=== PATIENT | female | born 1975 | race Caucasian/White ===

== ENCOUNTER 2017-09-24 07:32 | Emergency (ER) | payer BC ==
[2017-10-29] MEDS ORDERED: DILAUDID2 MG PO (15:13)
[2017-10-29] MEDS ORDERED: OMEPRAZOLE40 MG PO (15:13)
[2017-10-29] MEDS ORDERED: NEURONTIN 300300 MG PO (15:13)
[2017-10-29] MEDS ORDERED: PROPRANOLOL HCL80 MG PO (15:13)
[2017-10-29] MEDS ORDERED: CYMBALTA60 MG PO (15:13)
[2017-10-29] MEDS ORDERED: MAXALT5 MG PO (15:14)
[2017-10-29] MEDS ORDERED: KLONOPIN0.5 MG PO (15:14)
[2017-10-29] MEDS ORDERED: TRAZODONE HCL50 MG PO (15:14)
[2017-10-29] MEDS ORDERED: GLUCOPHAGE1000 MG PO (15:15)
[2017-10-30 10:02] VITALS: BMI 37.4
== END 2017-09-24 08:32 | disposition home or self-care (01) ==
LOC: D.ER 07:32
DX: S50.12XA Contusion of left forearm, initial encounter (principal); W22.8XXA Striking against or struck by other objects, initial encounter; Y93.89 Activity, other specified; Y92.89 Other specified places as the place of occurrence of the external cause; F17.200 Nicotine dependence, unspecified, uncomplicated

== ENCOUNTER 2017-10-30 09:20 | Day surgery (SDC) | payer OTHER ==
[~2017-10-30] VITALS: Ht 175.3 cm; Wt 115.0 kg
[~2017-10-30 09:20] MED LIST: CYMBALTA60 MG PO; DILAUDID2 MG PO; GLUCOPHAGE1000 MG PO; KLONOPIN0.5 MG PO; MAXALT5 MG PO; NEURONTIN 300300 MG PO; OMEPRAZOLE40 MG PO; PROPRANOLOL HCL80 MG PO; TRAZODONE HCL50 MG PO
[2017-10-30 10:02] VITALS: BP 137/81; Ht 175.3 cm; Wt 115.0 kg
[2017-10-30 10:11] LABS: HEMATOCRIT 43.4 % (36.0-48.0); HEMOGLOBIN 15.6 g/dL (12-16); MCH 33.2 pg (26.0-34.0); MCHC 35.9 g/dL (31.0-37.0); MCV 92.3 fL (80.0-100.0); MEAN PLATELET VOLUME 9.9 fL (7.4-10.4); RBC 4.7 10x6/uL (4.00-5.40); WBC 10.4 10x3/uL (4.8-10.8)
[2017-10-30] MEDS ORDERED: NUCYNTA75 MG PO (11:26)
[2017-10-30] MEDS ORDERED: DURICEF500 MG PO (11:26)
--- NOTE | 2017-10-30 14:18 | NUR ---
1300 IV DC WITH CATHER TIP INTACT
--- NOTE | 2017-10-30 15:41 | OP ---
PATIENT NAME: DANA ROSS MEDICAL RECORD: [id number] :73 LOCATION:[facility] ADMISSION DATE: SURGEON: ALEXY BAKER DO DATE OF OPERATION: 10/30/2017 PROCEDURE PERFORMED: Left de Quervain release. PREOPERATIVE DIAGNOSIS: Left de Quervain's tenosynovitis or radial styloid tenosynovitis. POSTOPERATIVE DIAGNOSIS: Left de Quervain's tenosynovitis or radial styloid tenosynovitis. INDICATIONS: Ms. Ross is a 42-year-old female who sustained some trauma to her left wrist couple months ago at work. She hit her left wrist on a cabinet and she has had pain ever since and she even had numbness in her radial sensory nerve distribution into her hand. This went on for some time. She came to see me in the office. We tried splinting her and injecting the de Quervain's tenosynovitis. She even got an MRI, which showed inflammation in the first dorsal compartment of the wrist. After we tried the injection, it did not help. She said she wanted it fixed as she was not getting relief from conservative management. I informed her that the numbness of the radial sensory branch may not come back due to the fact of the trauma to that site, but we could release her first dorsal compartment extensor compartment. She consented to this procedure in the office verbally and that was put on the schedule. DESCRIPTION OF PROCEDURE: Ms. Ross was taken to the operative suite, laid in supine position, given a gram of Ancef preoperatively. The left arm was prepped and draped in sterile fashion. Tourniquet was placed above the elbow. After this was done, timeout was performed. Everyone was agreement to the correct side, site, and patient. A tourniquet was then used on the left upper extremity to exsanguinate the left upper extremity and tourniquet was inflated. The tourniquet was up for approximately 11 minutes during the procedure. There were no complications. Blood loss was minimal. Once the tourniquet was inflated, an incision was made over the radial styloid on the dorsal side of it. Careful dissection was made down with scissors and then Ragnell down to the extensor tendon sheath in the first dorsal compartment. There was quite a bit of hematoma in the soft tissue from the trauma that had occurred and this may be the reason, the radial sensory branch had been irritated due to that trauma. Once the sheath was encountered, it was seen to be quite thickened. In fact, even fluid was coming out of the tendon sheath itself. The sheath was then divided off the dorsal side of the sheath and then the compartment was opened up. There was no excess fluid found in the EPB or the APL for it to be released. Both tendons were freed up both proximally and distally, any synovitis was taken out at that time. Once this was done, tourniquet was let down at 11 minutes and injection of 0.5% Marcaine without epinephrine were injected approximately 10 mL in the surrounding area. The skin was then closed with 3 inverted interrupted sutures of 5-0 Monocryl and then Steri-Strips were placed over the wound. After this was done, Adaptic, 4 x 4's, and Kerlix were placed on the wrist to cover the wound and Coban was lightly wrapped around that. The patient was awakened and taken to recovery in stable condition. TRANSINT:[id number] Voice Confirmation ID: [id number] DOCUMENT ID: [id number] OPERATIVE REPORT [id number] DANA ROSS MICHAEL D, DO at 1541 CC: [id number] DICTATION DATE: 10/30/17 1132 LEGAL SERVICE SPECIALIST: 10/30/17 1159 [facility] 10/30/17 [facility] [address] [place] [address]
== END 2017-10-30 13:30 | disposition home or self-care (01) ==
LOC: D.OPS 09:20
PROVIDERS: Anesthesiology
DX: M65.4 Radial styloid tenosynovitis [de Quervain] (principal); W22.03XA Walked into furniture, initial encounter; Z01.812 Encounter for preprocedural laboratory examination

== ENCOUNTER 2018-02-11 06:12 | Emergency (ER) | payer BC ==
[2017-10-30 10:02] VITALS: BMI 37.4
[~2018-02-11 06:12] MED LIST changes: +DURICEF500 MG PO; +NUCYNTA75 MG PO
[2018-02-11 06:49] LABS: BASOPHILS 0 % (0-2); EOSINOPHILS 1.5 % (0-7); HEMATOCRIT 44.2 % (36.0-48.0); HEMOGLOBIN 15.6 g/dL (12-16); IMMATURE GRANULOCYTES 0.4 % (0-5); LYMPHOCYTES 28.3 % (15-50); MCH 33.6 pg (26.0-34.0); MCHC 35.3 g/dL (31.0-37.0); MCV 95.3 fL (80.0-100.0); MEAN PLATELET VOLUME 10.2 fL (7.4-10.4); MONOCYTES 7.7 % (2-11); NEUTROPHILS 62.1 % (40-80); PLATELET COUNT 132 10x3/uL (130-400); RBC 4.64 10x6/uL (4.00-5.40); RDW 13.5 % (11.5-14.5); WBC 4.7 10x3/uL (4.8-10.8)
[2018-02-11 07:15] LABS: ALBUMIN 3.7 g/dL (3.4-5.0); ALKALINE PHOSPHATASE 106 U/L (46-116); ALT (SGPT) 33 U/L (10-68); BILIRUBIN - TOTAL 0.76 mg/dL (0.2-1.3); CALC OSMOLALITY 270 mosm/kg (275-300); CALCIUM 9.1 mg/dL (8.5-10.1); CARBON DIOXIDE 24.5 mmol/L (21.0-32.0); CHLORIDE - SERUM 97 mmol/L (98-107); CREATININE - SERUM 0.7 mg/dL (0.6-1.3); GLUCOSE 183 mg/dL (74-106); POTASSIUM - SERUM 3.8 mmol/L (3.5-5.1); PROTEIN - SERUM 7.7 g/dL (6.4-8.2); SODIUM 133 mmol/L (136-145); UREA NITROGEN 12 mg/dL (7-18); eGFR NON AFRICAN AMERICAN > 90 mL/min (90-120)
[2018-02-11 07:25] LABS: CHOL - HDL RATIO 8.7 ratio (2.3-4.1); CHOLESTEROL, TOTAL 261 mg/dL (0-200); CKMB 0.3 U/L (0.0-3.6); CREATINE KINASE 41 UL (21-215); HDL CHOLESTEROL 30 mg/dL (32-96)
[2018-02-11 07:26] LABS: TRIGLYCERIDE 660 mg/dL (30-200); TROPONIN-I < 0.017 ng/mL (0.000-0.060)
[2018-02-11 07:45] LABS: APTT 24.4 SECONDS (22.8-39.4); INR 0.9 (0.85-1.17); PROTIME 11.8 SECONDS (11.6-15.0)
[2018-02-11 07:46] LABS: D-DIMER-QUANTITATIVE 0.59 ug/mLFEU (0.20-0.54)
[2018-02-11 08:01] LABS: MAGNESIUM - SERUM 1.9 mg/dL (1.8-2.4); THYROID STIMULATING HORMONE 2.26 uIU/mL (0.36-3.74)
== END 2018-02-11 11:49 | disposition home or self-care (01) ==
LOC: D.ER 06:12
PROVIDERS: Emergency Medicine; Family Medicine
DX: R07.9 Chest pain, unspecified (principal); J40 Bronchitis, not specified as acute or chronic; E11.9 Type 2 diabetes mellitus without complications; F17.200 Nicotine dependence, unspecified, uncomplicated

== ENCOUNTER 2018-03-23 06:39 | Day surgery (SDC) | payer BC ==
[~2018-03-23] VITALS: Ht 175.3 cm; Wt 122.7 kg
--- NOTE | ~2018-03-23 | OP ---
PATIENT NAME: DANA SHAW MEDICAL RECORD: [id number] :73 LOCATION:[facility] ADMISSION DATE: SURGEON: EULA MEDINA MD DATE OF OPERATION: 03/24/2018 PREOPERATIVE DIAGNOSES: Biliary dyskinesia, also hepatomegaly. POSTOPERATIVE DIAGNOSES: Biliary dyskinesia, also hepatomegaly with lower abdominal adhesions between the umbilicus and the bladder, and adhesions to the gallbladder. PROCEDURES: 1. Laparoscopic cholecystectomy. 2. Intraoperative cholangiography without immediate surgeon interpretation. 3. A 14-gauge core needle liver biopsies. SURGEON: Eula Medina MD BAG SHAKER: None. BLOOD LOSS: 50 cc. ANESTHESIA: General. DRAINS: Times 1 (10-Indonesian closed suction drainage system). Indication for the liver biopsy was hepatomegaly. The patient has marked hepatomegaly. The risks, possible complications, alternatives to procedure were explained to the patient. She elects to proceed. OPERATIVE COURSE: The patient was conveyed to the operating room electively on 03/24/2018. General anesthesia was induced by the anesthesia staff. The abdomen was sterilely prepped and draped. A small skin jaiden was accomplished in the left upper quadrant. A Veress needle was inserted through the skin jaiden into the peritoneal cavity. CO2 insufflation was begun. Once a sufficient pneumoperitoneum had been achieved, a 5-mm trocar was inserted through an incision in the right upper quadrant. Under direct internal vision utilizing television camera, a 12-mm trocar was inserted, cephalad to the umbilicus. A 5-mm trocar was inserted through an incision in the epigastrium. Another 5 mm trocar was inserted through an incision far laterally in the right upper quadrant. During insertion of the Veress needle and all trocars, there appeared to have been no injury to the bowels, any intraperitoneal or retroperitoneal structures. Under laparoscopic guidance, I percutaneously accessed the right upper quadrant utilizing a 14-gauge core needle liver biopsy device. Cores were obtained over the convexity the liver. The biopsy sites were made hemostatic with electrocautery. I then advanced a cholangiogram trocar. I punctured the fundus of the gallbladder. I aspirated bile. I then injected dye. Under real time fluoroscopy, static fluoroscopic images were obtained. These were cholangiographic images which are sent to the radiologist for interpretation. I OPERATIVE REPORT [id number] DANA SHAW then aspirated bile and removed the cholangiogram trocar. I then grasped the gallbladder and retracted it cephalad. Adhesions were taken down bluntly. Blunt dissection was begun on the triangle of Calot. One cystic artery and one cystic duct were identified. These were clipped multiply and divided between clips. The gallbladder was then excised from its bed in the liver. It was placed within a bag retrieval device and was withdrawn through the supraumbilical incision. The 12-mm trocar was replaced and the abdomen reinsufflated. I irrigated and aspirated the right upper quadrant. Tomasa and Nu-Knit were added to the gallbladder fossa for additional hemostasis. A 10-Indonesian drain was then advanced through the lateral most trocar site. It was sutured to the skin with a 2-0 silk. The 12-mm trocar was removed. The fascia at the 12 mm trocar site was closed with a single 0 Vicryl suture utilizing the Karel-Hieu suture closure device. All the trocars were removed and the abdomen desufflated. The skin incisions were closed with interrupted intracuticular 3-0 Vicryl. Benzoin and Steri-Strips were applied. The patient was then extubated and conveyed to post-anesthesia care unit where she was in stable condition. TRANSINT:[id number] Voice Confirmation ID: [id number] DOCUMENT ID: [id number] EULA MEDINA MD at 1157 CC: SAVAGE ULLOA MD and ELIJAH BRICE MD [id number] DICTATION DATE: 03/24/181914 URANIUM PROCESSING SUPERVISOR: 03/24/182006 [facility] 03/25/18 [facility] [address] [place] [address]
--- NOTE | ~2018-03-23 | HP ---
PATIENT: DANA SHAW MEDICAL RECORD: [id number] ACCOUNT: [id number] LOCATION:[facility] : 73 ADMISSION DATE: 03/23/18 HISTORY AND PHYSICAL EXAMINATION CHIEF COMPLAINT: Pain. HISTORY OF PRESENT ILLNESS: The patient has been having right upper quadrant pain, which radiates around to the right back and to the right scapula. It started yesterday. It was intermittent pain yesterday, now is continuous. She does have a Nicholas sign. No peritonitis to percussion. The pain is worse today, it is 8/10. She has had 10 mg of morphine in the Emergency Room and her pain is still unbearable. The patient has had nausea and vomiting. She has had abdominal bloating, also diarrhea. Food brought on this attack. She has never had a gallbladder attack in the past. I have personally reviewed her CT images. I have personally reviewed the CT report. I personally discussed this patient with Dr. Elijah Robertson. Palpation aggravates. Nothing alleviates. REVIEW OF SYSTEMS: Negative for night sweats or weight loss. Negative for anorexia. Negative for hemoptysis. Positive for fever. No black or tarry stools. Review of systems is negative other than as is described above. PAST MEDICAL AND SURGICAL HISTORY: Chest pain, anxiety, bronchitis, contusion to the left forearm, diabetes mellitus. ALLERGIES: PERCOCET, PENICILLIN, AND VICODIN. PHYSICAL EXAMINATION: GENERAL: She does appear acutely ill. Does not appear chronically ill. VITAL SIGNS: Reviewed. The entire physical examination was performed in the presence of a female nurse. EARS: External ears appear normal. EYES: Extraocular movements are intact. NECK: Trachea is midline. CHEST: No intercostal retractions. PULMONARY: Nonlabored, no stridor. ABDOMEN: As described above. EXTREMITIES: No peripheral cyanosis. INTEGUMENT: No rash. No ulcerations. She does have a abhinav face. PSYCHIATRIC: Normal affect. NEUROLOGIC: Nonfocal, no lethargy. The patient answers questions appropriately, moves all extremities well. BACK: No thoracic kyphosis. IMPRESSION: Right upper quadrant abdominal pain, intractable with nausea and vomiting, likely due to a biliary source. PLAN: Admit. IV narcotic analgesia. IV antiemetics. Abdominal ultrasound. PIPIDA scan with ejection fraction. TRANSINT:[id number] Voice Confirmation ID: [id number] DOCUMENT ID: [id number] HISTORY AND PHYSICAL [id number] DANA SHAW ROBERT MD at 1157 CC: SAVAGE ULLOA MD and ELIJAH ROBERTSON MD [id number] DICTATION DATE: 03/23/18 1026 ELECTRIC RAZOR ASSEMBLER: 03/23/18 1136 [facility] 03/25/18 [facility] [address] [place] [id number]
[2018-03-23 07:36] LABS: BASOPHILS 0.2 % (0-2); EOSINOPHILS 1.5 % (0-7); HEMOGLOBIN 14.2 g/dL (12-16); IMMATURE GRANULOCYTES 0.5 % (0-5); MCH 34.7 pg (26.0-34.0); MCHC 36.4 g/dL (31.0-37.0); MCV 95.4 fL (80.0-100.0); MEAN PLATELET VOLUME 10.1 fL (7.4-10.4); MONOCYTES 7.9 % (2-11); NEUTROPHILS 55.9 % (40-80); RBC 4.09 10x6/uL (4.00-5.40); RDW 13.4 % (11.5-14.5); WBC 6.6 10x3/uL (4.8-10.8)
[2018-03-23 07:38] LABS: PLATELET COUNT 182 10x3/uL (130-400)
[2018-03-23 07:41] LABS: APPEARANCE CLOUDY (CLEAR); BILIRUBIN NEGATIVE (NEGATIVE); COLOR ST (YELLOW); GLUCOSE 1000 mg/dL (NEGATIVE); KETONE NEGATIVE (NEGATIVE); NITRITE NEGATIVE (NEGATIVE); PROTEIN NEGATIVE (NEGATIVE); SPECIFIC GRAVITY 1.005 (1.005-1.020); UROBILINOGEN NORMAL (NORMAL)
[2018-03-23 08:25] LABS: AMYLASE - SERUM 20 U/L (25-115); GLUCOSE 191 mg/dL (74-106); LIPASE 123 U/L (73-393)
[2018-03-23 08:26] LABS: CALC OSMOLALITY 276 mosm/kg (275-300); CALCIUM 7.8 mg/dL (8.5-10.1); CARBON DIOXIDE 11.1 mmol/L (21.0-32.0); CHLORIDE - SERUM 100 mmol/L (98-107); CREATININE - SERUM 0.6 mg/dL (0.6-1.3); SODIUM 136 mmol/L (136-145); UREA NITROGEN 13 mg/dL (7-18); eGFR NON AFRICAN AMERICAN > 90 mL/min (90-120)
[2018-03-23 08:27] LABS: ALBUMIN 3.8 g/dL (3.4-5.0); ALKALINE PHOSPHATASE 103 U/L (46-116); ALT (SGPT) 47 U/L (10-68); PROTEIN - SERUM 7.1 g/dL (6.4-8.2); TROPONIN-I < 0.017 ng/mL (0.000-0.060)
[2018-03-23 23:23] VITALS: Ht 175.3 cm; Wt 122.7 kg
[2018-03-24] VITALS (14 sets, daily range): BP systolic 106–168; BP diastolic 60–104
[2018-03-25 00:15] VITALS: BP 137/68
[2018-03-25 00:49] VITALS: BP 153/91
[2018-03-25 01:15] VITALS: BP 123/68
[2018-03-25 04:49] LABS: BASOPHILS 0 % (0-2); EOSINOPHILS 0.4 % (0-7); HEMATOCRIT 37.5 % (36.0-48.0); HEMOGLOBIN 12.6 g/dL (12-16); IMMATURE GRANULOCYTES 0.2 % (0-5); LYMPHOCYTES 14.6 % (15-50); MCH 32.6 pg (26.0-34.0); MCHC 33.6 g/dL (31.0-37.0); MCV 97.2 fL (80.0-100.0); MEAN PLATELET VOLUME 9.9 fL (7.4-10.4); MONOCYTES 5.2 % (2-11); NEUTROPHILS 79.6 % (40-80); RBC 3.86 10x6/uL (4.00-5.40); RDW 13.7 % (11.5-14.5)
[2018-03-25 05:04] LABS: ALBUMIN 3.1 g/dL (3.4-5.0); ALKALINE PHOSPHATASE 72 U/L (46-116); BILIRUBIN - TOTAL 0.85 mg/dL (0.2-1.3); CALCIUM 7.8 mg/dL (8.5-10.1); CHLORIDE - SERUM 100 mmol/L (98-107); CREATININE - SERUM 0.6 mg/dL (0.6-1.3); GLUCOSE 182 mg/dL (74-106); MAGNESIUM - SERUM 2.1 mg/dL (1.8-2.4); POTASSIUM - SERUM 3.7 mmol/L (3.5-5.1); PROTEIN - SERUM 6.5 g/dL (6.4-8.2); SODIUM 132 mmol/L (136-145); eGFR NON AFRICAN AMERICAN > 90 mL/min (90-120)
[2018-03-25 05:06] LABS: PLATELET COUNT 145 10x3/uL (130-400)
[2018-03-25 05:07] LABS: ALT (SGPT) 117 U/L (10-68); CALC OSMOLALITY 267 mosm/kg (275-300); CARBON DIOXIDE 18.6 mmol/L (21.0-32.0); UREA NITROGEN 7 mg/dL (7-18)
[2018-03-25 08:48] VITALS: BP 161/90
[2018-03-25 11:36] VITALS: BP 146/71
[2018-03-25] MEDS ORDERED: HYDROCODON-ACE1 EAC7 PO (13:13)
== END 2018-03-25 15:26 | disposition home or self-care (01) ==
LOC: OBSVTIME → D.ER 06:39 → D.EDHOLD 10:33 → D.ER 10:33 → OBSVTIME 10:33 → D.MS 10:33 → D.EDHOLD 10:33 → D.MS 20:20 → EDSTATUS 03-24 11:45 → D.MS 03-25 15:26 → D.ER 03-25 15:26 → D.MS 03-25 15:26
PROVIDERS: Family Medicine
DX: K82.8 Other specified diseases of gallbladder (principal); K76.0 Fatty (change of) liver, not elsewhere classified; K66.0 Peritoneal adhesions (postprocedural) (postinfection); R11.2 Nausea with vomiting, unspecified; E10.65 Type 1 diabetes mellitus with hyperglycemia; F17.203 Nicotine dependence unspecified, with withdrawal; E86.0 Dehydration; R50.9 Fever, unspecified; Z01.812 Encounter for preprocedural laboratory examination; G47.30 Sleep apnea, unspecified; K21.9 Gastro-esophageal reflux disease without esophagitis

== ENCOUNTER → 2018-08-10 18:18 | Outpatient (CLI) | payer BC ==
[2018-03-23 23:23] VITALS: BMI 39.9
[~2018-08-10 18:18] MED LIST changes: +HYDROCODON-ACE1 EAC7 PO
== END | disposition home or self-care (01) ==
LOC: D.MAMMO 16:15
DX: Z12.31 Encounter for screening mammogram for malignant neoplasm of breast (principal)

== ENCOUNTER → 2018-09-03 16:39 | Outpatient (CLI) | payer BC ==
[2018-03-23 23:23] VITALS: BMI 39.9
== END | disposition home or self-care (01) ==
LOC: D.MAMMO 10:00
DX: R92.8 Other abnormal and inconclusive findings on diagnostic imaging of breast (principal)

== ENCOUNTER → 2018-11-25 11:34 | Outpatient (CLI) | payer BC ==
[2018-03-23 23:23] VITALS: BMI 39.9
== END | disposition home or self-care (01) ==
LOC: D.RAD 11:34
DX: M25.512 Pain in left shoulder (principal)

== ENCOUNTER 2019-03-10 09:45 | Emergency (ER) | payer BC ==
[~2019-03-10] VITALS: Ht 175.3 cm; Wt 122.7 kg
[2019-03-10 09:49] VITALS: Ht 175.3 cm; Wt 122.7 kg
[2019-03-10 10:11] LABS: BASOPHILS 0.1 % (0-2); EOSINOPHILS 1.4 % (0-7); HEMATOCRIT 39.4 % (36.0-48.0); HEMOGLOBIN 13.1 g/dL (12-16); IMMATURE GRANULOCYTES 0.4 % (0-5); LYMPHOCYTES 36.6 % (15-50); MCHC 33.2 g/dL (31.0-37.0); MCV 81.2 fL (80.0-100.0); MEAN PLATELET VOLUME 10.9 fL (7.4-10.4); MONOCYTES 4.3 % (2-11); NEUTROPHILS 57.2 % (40-80); RBC 4.85 10x6/uL (4.00-5.40); RDW 16.4 % (11.5-14.5); WBC 6.9 10x3/uL (4.8-10.8)
[2019-03-10 10:13] LABS: PLATELET COUNT 199 10x3/uL (130-400)
[2019-03-10 10:15] LABS: APPEARANCE HAZY (CLEAR); BILIRUBIN NEGATIVE (NEGATIVE); COLOR YELLOW (YELLOW); GLUCOSE 1000 mg/dL (NEGATIVE); KETONE NEGATIVE (NEGATIVE); NITRITE NEGATIVE (NEGATIVE); PROTEIN NEGATIVE (NEGATIVE); SPECIFIC GRAVITY 1.005 (1.005-1.020); UROBILINOGEN NORMAL (NORMAL)
[2019-03-10 10:16] LABS: EPITHELIAL CELLS 0-5 /hpf (0-5); RED CELLS - URINE >50 /hpf (0-5); WHITE CELLS - URINE 0-5 /hpf (0-5)
[2019-03-10 10:32] LABS: ALBUMIN 3.3 g/dL (3.4-5.0); BILIRUBIN - TOTAL 0.46 mg/dL (0.2-1.3); CALCIUM 8.6 mg/dL (8.5-10.1); CARBON DIOXIDE 20.3 mmol/L (21.0-32.0); PROTEIN - SERUM 7.6 g/dL (6.4-8.2)
[2019-03-10 11:17] LABS: ANION GAP 20.7 mmol/L (8-16)
[2019-03-10] MEDS ORDERED: DILAUDID2 MG PO (11:41)
[2019-03-10 12:45] VITALS: BP 134/72
== END 2019-03-10 12:45 | disposition home or self-care (01) ==
LOC: D.ER 09:45
PROVIDERS: Emergency Medicine
DX: R31.9 Hematuria, unspecified (principal); E11.69 Type 2 diabetes mellitus with other specified complication; K59.00 Constipation, unspecified

== ENCOUNTER 2019-03-21 12:28 | Emergency (ER) | payer BC ==
[~2019-03-21] VITALS: Ht 175.3 cm; Wt 122.7 kg
[2019-03-21 12:31] VITALS: Ht 175.3 cm; Wt 122.7 kg
[2019-03-21 13:41] LABS: BASOPHILS 0.1 % (0-2); EOSINOPHILS 1.5 % (0-7); HEMATOCRIT 39.2 % (36.0-48.0); IMMATURE GRANULOCYTES 0.3 % (0-5); LYMPHOCYTES 37.8 % (15-50); MCH 26.9 pg (26.0-34.0); MCHC 33.2 g/dL (31.0-37.0); MCV 81.2 fL (80.0-100.0); MONOCYTES 4.8 % (2-11); NEUTROPHILS 55.5 % (40-80); PLATELET COUNT 183 10x3/uL (130-400); RBC 4.83 10x6/uL (4.00-5.40); RDW 16.5 % (11.5-14.5); WBC 7.3 10x3/uL (4.8-10.8)
[2019-03-21 14:00] LABS: APPEARANCE CLEAR (CLEAR); BILIRUBIN NEGATIVE (NEGATIVE); COLOR YELLOW (YELLOW); GLUCOSE 1000 mg/dL (NEGATIVE); KETONE NEGATIVE (NEGATIVE); NITRITE NEGATIVE (NEGATIVE); PROTEIN NEGATIVE (NEGATIVE); UROBILINOGEN NORMAL (NORMAL)
[2019-03-21 14:04] LABS: ALBUMIN 3.4 g/dL (3.4-5.0); ALKALINE PHOSPHATASE 107 U/L (46-116); BILIRUBIN - TOTAL 0.26 mg/dL (0.2-1.3); CALCIUM 8.8 mg/dL (8.5-10.1); CHLORIDE - SERUM 100 mmol/L (98-107); CREATININE - SERUM 0.8 mg/dL (0.6-1.3); POTASSIUM - SERUM 3.6 mmol/L (3.5-5.1); PROTEIN - SERUM 7.4 g/dL (6.4-8.2); SODIUM 136 mmol/L (136-145); UREA NITROGEN 14 mg/dL (7-18); eGFR NON AFRICAN AMERICAN 82 mL/min (90-120)
[2019-03-21 14:06] LABS: CALC OSMOLALITY 279 mosm/kg (275-300); GLUCOSE 222 mg/dL (74-106)
[2019-03-21 14:13] LABS: ALT (SGPT) 55 U/L (10-68)
[2019-03-21 19:45] VITALS: BP 121/73
== END 2019-03-21 19:18 | disposition home or self-care (01) ==
LOC: D.ER 12:28
PROVIDERS: Family Medicine
DX: R10.31 Right lower quadrant pain (principal); R10.32 Left lower quadrant pain; E11.9 Type 2 diabetes mellitus without complications

== ENCOUNTER 2019-07-28 05:48 | Emergency (ER) | payer BC ==
[~2019-07-28] VITALS: Ht 175.3 cm; Wt 122.7 kg
[2019-07-28 06:26] LABS: BASOPHILS 0.2 % (0-2); EOSINOPHILS 1.3 % (0-7); HEMATOCRIT 37.3 % (36.0-48.0); HEMOGLOBIN 12.6 g/dL (12-16); IMMATURE GRANULOCYTES 0.5 % (0-5); LYMPHOCYTES 32.8 % (15-50); MCHC 33.8 g/dL (31.0-37.0); MCV 77.1 fL (80.0-100.0); MEAN PLATELET VOLUME 10.5 fL (7.4-10.4); NEUTROPHILS 59.2 % (40-80); PLATELET COUNT 203 10x3/uL (130-400); RBC 4.84 10x6/uL (4.00-5.40); RDW 16.4 % (11.5-14.5); WBC 6.2 10x3/uL (4.8-10.8)
[2019-07-28 06:40] LABS: APPEARANCE CLEAR (CLEAR); COLOR YELLOW (YELLOW)
[2019-07-28 06:41] LABS: BILIRUBIN NEGATIVE (NEGATIVE); GLUCOSE 1000 mg/dL (NEGATIVE); KETONE SMALL mg/dL (NEGATIVE); NITRITE NEGATIVE (NEGATIVE); PROTEIN NEGATIVE (NEGATIVE); SPECIFIC GRAVITY 1.015 (1.005-1.020); UROBILINOGEN NORMAL (NORMAL)
[2019-07-28 06:43] LABS: BACTERIA FEW /hpf (NONE SEEN); EPITHELIAL CELLS 0-5 /hpf (0-5); RED CELLS - URINE 0-5 /hpf (0-5); WHITE CELLS - URINE NSEEN /hpf (0-5); YEAST <1+ /hpf (NONE SEEN)
[2019-07-28 06:54] LABS: ALBUMIN 3.8 g/dL (3.4-5.0); ALKALINE PHOSPHATASE 139 U/L (46-116); AMYLASE - SERUM 23 U/L (25-115); BILIRUBIN - TOTAL 0.69 mg/dL (0.2-1.3); CALC OSMOLALITY 275 mosm/kg (275-300); CHLORIDE - SERUM 95 mmol/L (98-107); CREATININE - SERUM 0.5 mg/dL (0.6-1.3); GLUCOSE 285 mg/dL (74-106); LIPASE 234 U/L (73-393); POTASSIUM - SERUM 4.5 mmol/L (3.5-5.1); SODIUM 132 mmol/L (136-145); UREA NITROGEN 14 mg/dL (7-18); eGFR NON AFRICAN AMERICAN > 90 mL/min (90-120)
[2019-07-28 07:05] LABS: ALT (SGPT) 59 U/L (10-68)
[2019-07-28] MEDS ORDERED: ZOFRAN ODT4 MG/UDTAB PO (08:42)
[2019-07-28 08:44] VITALS: BP 130/88
== END 2019-07-28 08:52 | disposition home or self-care (01) ==
LOC: D.ER 05:48
PROVIDERS: Family Medicine
DX: R10.31 Right lower quadrant pain (principal); A08.4 Viral intestinal infection, unspecified

== ENCOUNTER → 2019-12-14 21:45 | Outpatient (CLI) | payer BC ==
[2019-07-28 05:51] VITALS: BMI 39.9
[~2019-12-14 21:45] MED LIST changes: +ZOFRAN ODT4 MG/UDTAB PO
== END | disposition home or self-care (01) ==
LOC: D.MAMMO 14:30
PROVIDERS: ATTEND Family Medicine
DX: R92.8 Other abnormal and inconclusive findings on diagnostic imaging of breast (principal)

== ENCOUNTER 2021-02-19 10:13 | Emergency (ER) | payer BC ==
[~2021-02-19] VITALS: Ht 177.8 cm; Wt 109.1 kg
[~2021-02-19 10:13] MED LIST changes: +CHOLESTEROL MED; +CYMBALTA30 MG PO; +GLUCOPHAGE500 MG PO; +INDERAL 40 MG T40 MG PO; +MUCINEX DM ER1 EAC1 PO; +OMNICEF300 MG PO; +PROTONIX40 MG PO; +TRULICITY1.5 MG/0.5 SC
[2021-02-19 10:21] VITALS: Ht 177.8 cm; Wt 109.1 kg
[2021-02-19 11:37] VITALS: BP 130/75
[2021-02-19] MEDS ORDERED: MEDROL DOSE PACK4 MG PO (12:24)
== END 2021-02-19 11:50 | disposition home or self-care (01) ==
LOC: D.ER 10:13
DX: T78.49XA Other allergy, initial encounter (principal); I05.0 Rheumatic mitral stenosis; E11.9 Type 2 diabetes mellitus without complications; L29.9 Pruritus, unspecified

== ENCOUNTER 2021-04-03 01:32 | Emergency (ER) | payer BC ==
[~2021-04-03] VITALS: Ht 177.8 cm; Wt 105.5 kg
[~2021-04-03 01:32] MED LIST changes: +MEDROL DOSE PACK4 MG PO
[2021-04-03 01:35] VITALS: Ht 177.8 cm; Wt 105.5 kg
[2021-04-03 02:06] LABS: BASOPHILS 0.2 % (0-2); EOSINOPHILS 1.5 % (0-7); HEMATOCRIT 44.9 % (36.0-48.0); HEMOGLOBIN 15.4 g/dL (12-16); IMMATURE GRANULOCYTES 0.3 % (0-5); LYMPHOCYTE ABS# 1.42 10x3/uL (1.18-3.74); MCH 30.5 pg (26.0-34.0); MCHC 34.3 g/dL (31.0-37.0); MCV 88.9 fL (80.0-100.0); MEAN PLATELET VOLUME 10.4 fL (7.4-10.4); MONOCYTES 11.5 % (2-11); NEUTROPHIL ABS# 3.92 10x3/uL (1.56-6.13); NEUTROPHILS 63.5 % (40-80); RBC 5.05 10x6/uL (4.00-5.40); RDW 13.7 % (11.5-14.5); WBC 6.2 10x3/uL (4.8-10.8)
[2021-04-03 02:07] LABS: BILIRUBIN NEGATIVE (NEGATIVE); KETONE NEGATIVE (NEGATIVE); NITRITE NEGATIVE (NEGATIVE); UROBILINOGEN NORMAL mg/dL (< 2)
[2021-04-03 02:08] LABS: PLATELET COUNT 153 10x3/uL (130-400)
[2021-04-03 02:10] LABS: CALC OSMOLALITY 274 mosm/kg (275-300); CALCIUM 9.1 mg/dL (8.5-10.1); CARBON DIOXIDE 27.3 mmol/L (21.0-32.0); CHLORIDE - SERUM 98 mmol/L (98-107); CREATININE - SERUM 0.6 mg/dL (0.6-1.3); GLUCOSE 167 mg/dL (74-106); POTASSIUM - SERUM 3.7 mmol/L (3.5-5.1); SODIUM 136 mmol/L (136-145); UREA NITROGEN 10 mg/dL (7-18); eGFR NON AFRICAN AMERICAN > 90 mL/min (90-120)
[2021-04-03 02:15] LABS: ALBUMIN 3.4 g/dL (3.4-5.0); ALKALINE PHOSPHATASE 107 U/L (30-120); ALT (SGPT) 37 U/L (10-68); BILIRUBIN - TOTAL 0.57 mg/dL (0.2-1.3); LIPASE 81 U/L (73-393); PROTEIN - SERUM 7.7 g/dL (6.4-8.2)
[2021-04-03] MEDS ORDERED: CIPRO500 MG PO (04:17)
[2021-04-03] MEDS ORDERED: FLAGYL500 MG PO (04:17)
[2021-04-03] MEDS ORDERED: ZOFRAN ODT4 MG/UDTAB PO (04:17)
[2021-04-03] MEDS ORDERED: MORPHINE IMMEDI15 MG PO (04:22)
[2021-04-03 04:45] VITALS: BP 115/75
== END 2021-04-03 04:37 | disposition home or self-care (01) ==
LOC: D.ER 01:32
PROVIDERS: Family Medicine
DX: K52.9 Noninfective gastroenteritis and colitis, unspecified (principal); R11.2 Nausea with vomiting, unspecified; E11.9 Type 2 diabetes mellitus without complications; G35 Multiple sclerosis; Z79.84 Long term (current) use of oral hypoglycemic drugs; R10.9 Unspecified abdominal pain